=== PATIENT | male | born 1960 | race Caucasian/White ===

== ENCOUNTER 2023-12-05 11:26 | Day surgery (SDC) | payer OTHER ==
[~2023-12-05 11:26] MED LIST: Metoclopramide 10 MG/2 ML SDV IV PRN
[2023-12-05] MEDS: Sodium Chloride 0.9% 1,000 ML IV SCH (12:13)
== END 2023-12-05 15:30 | disposition home or self-care (01) ==
LOC: LB.SDS 11:26
PROVIDERS: ATTEND Surgery
DX: Z12.11 Encounter for screening for malignant neoplasm of colon (principal); D12.3 Benign neoplasm of transverse colon; D12.5 Benign neoplasm of sigmoid colon; I10 Essential (primary) hypertension; E78.5 Hyperlipidemia, unspecified; J43.9 Emphysema, unspecified; E66.3 Overweight; F10.21 Alcohol dependence, in remission; F17.200 Nicotine dependence, unspecified, uncomplicated; Z79.899 Other long term (current) drug therapy
CPT/HCPCS: J2704; J7030

== ENCOUNTER 2025-01-11 07:52 | Day surgery (SDC) | payer OTHER ==
[2025-01-11] MEDS ORDERED: Propofol 500 MG/50 ML SDV ONE (10:00)
== END 2025-01-11 11:03 | disposition home or self-care (01) ==
LOC: LB.SDS 07:52
PROVIDERS: ATTEND Surgery
DX: Z12.11 Encounter for screening for malignant neoplasm of colon (principal); D12.2 Benign neoplasm of ascending colon; D12.3 Benign neoplasm of transverse colon; D12.4 Benign neoplasm of descending colon; D12.5 Benign neoplasm of sigmoid colon; K63.89 Other specified diseases of intestine; K57.30 Diverticulosis of large intestine without perforation or abscess without bleeding; K64.9 Unspecified hemorrhoids; E78.5 Hyperlipidemia, unspecified; E66.3 Overweight; F17.210 Nicotine dependence, cigarettes, uncomplicated; Z91.030 Bee allergy status; Z79.899 Other long term (current) drug therapy; Z68.26 Body mass index [BMI] 26.0-26.9, adult; Z86.0100 Personal history of colon polyps, unspecified
CPT/HCPCS: 45385; J2704; J7030